=== PATIENT | female | born 1970 | race Caucasian/White ===

== ENCOUNTER 2016-10-08 11:33 | Emergency (ER) | payer MEDICAID ==
[~2016-10-08] VITALS: Ht 154.9 cm; Wt 77.2 kg
[2016-10-08 11:45] VITALS: BP 132/101; PULSE 106; RESP 20; TEMP 97.7; O2SAT 98
[2016-10-08] MEDS ORDERED: ATOR10TA15 PO (11:54)
[2016-10-08] MEDS ORDERED: FLUO20CA4 PO (11:54)
[2016-10-08] MEDS ORDERED: TRAZ100T4 PO (11:54)
[2016-10-08] MEDS ORDERED: SODIUM CHLORIDE 0.9% FLUSH 10 ML FLUSH IVF PRN (12:00)
[2016-10-08] MEDS ORDERED: HYDROmorphone HCL PF 1 MG/ML VIAL IV PUSH ONE (12:00)
[2016-10-08] MEDS ORDERED: ONDANSETRON HCL 4 MG/2 ML VIAL IV PUSH ONE (12:00)
--- NOTE | 2016-10-08 12:01 | PD ---
HPI Chief Complaint: Pain: Acute or Chronic Time Seen by Provider: 11:56 Travel History International Travel<30 days: No Contact w/Intl Traveler<30days: No Traveled to known affect area: No History of Present Illness HPI 46-year-old female with history of pleurisy, presents to the ER today because she is having right posterior chest wall pain with radiation to the right anterior chest wall that started on its own yesterday afternoon. She states it is currently an 8 out of 10 and worsens with deep breaths and moving. She states that it feels better when she holds up her right breast. She denies any coughing, fevers, or any other symptoms. She states that she did have an upper respiratory infection last week which she was getting over. She states it feels exactly like when she had pleurisy last spring. Modifying Factors: Worse with movement deep breaths Associated Signs & Symptoms: Right chest wall pain Risk Factors: History of pleurisy PFSH Past Medical History Anxiety: Yes Depression: Yes High Cholesterol: Yes Medical other: Yes (PLEURISY) ?: Not LMP: [employer] Social History Alcohol Use: No Tobacco Use: Yes Substance Use: No Allergies-Medications (Allergen,Severity, Reaction): Coded Allergies: No Known Allergies (Unverified , 10/08/16) Reported Meds & Prescriptions Reported Meds & Active Scripts Active Reported Fluoxetine (Fluoxetine HCl) 20 Mg Cap 20 Mg PO DAILY Review of Systems Except as stated in HPI: all other systems reviewed are Neg Physical Exam Narrative GENERAL: Middle age white female patient currently is in moderate distress secondary to pain, holding on to her right breast. She is awake, alert, oriented 3. SKIN: Warm and dry. HEAD: Atraumatic. Normocephalic. EYES: Pupils equal and round. No scleral icterus. No injection or drainage. ENT: No nasal bleeding or discharge. Mucous membranes pink and moist. NECK: Trachea midline. No JVD. CARDIOVASCULAR: Regular rate and rhythm. No murmur appreciated. Pulses are present and equal bilaterally. CHEST: Mildly tender to palpation in the right posterior and anterior without deformity or crepitance. No retractions or use of accessory muscles. RESPIRATORY: No accessory muscle use. Clear to auscultation. Breath sounds equal bilaterally. GASTROINTESTINAL: Abdomen soft, non-tender, nondistended. Hepatic and splenic margins not palpable. MUSCULOSKELETAL: No obvious deformities. No clubbing. No cyanosis. No edema. NEUROLOGICAL: Awake and alert. No obvious cranial nerve deficits. Motor grossly within normal limits. Normal speech. PSYCHIATRIC: Appropriate mood and affect; insight and judgment normal. Data Data Last Documented VS Vital Signs Date Time Temp Pulse Resp B/P Pulse Ox O2 Delivery O2 Flow Rate FiO2 10/08/16 12:15 Nasal Cannula 2 10/08/16 12:13 97 10/08/16 12:13 88 20 140/77 130/90 10/08/16 11:45 97.7 Orders Electrocardiogram (10/08/16 11:56) Ckmb (Isoenzyme) Profile (10/08/16 11:56) Complete Blood Count With Diff (10/08/16 11:56) Comprehensive Metabolic Panel (10/08/16 11:56) D-Dimer (10/08/16 11:56) Magnesium (Mg) (10/08/16 11:56) Prothrombin Time / Inr (Pt) (10/08/16 11:56) Act Partial Throm Time (Ptt) (10/08/16 11:56) Troponin I (10/08/16 11:56) Chest, Single Ap (10/08/16 11:56) Ecg Monitoring (10/08/16 11:56) Bilateral Bp Monitoring (10/08/16 11:56) Iv Access Insert/Monitor (10/08/16 11:56) Oximetry (10/08/16 11:56) Oxygen Administration (10/08/16 11:56) Sodium Chloride 0.9% Flush (Ns Flush) (10/08/16 12:00) Hydromorphone Pf Inj (Dilaudid Pf Inj) (10/08/16 12:00) Ondansetron Inj (Zofran Inj) (10/08/16 12:00) Labs Laboratory Tests Test 10/08/16 12:00 White Blood Count 7.8 TH/MM3 Red Blood Count 4.45 MIL/MM3 Hemoglobin 14.2 GM/DL Hematocrit 41.8 % Mean Corpuscular Volume 93.8 FL Mean Corpuscular Hemoglobin 31.9 PG Mean Corpuscular Hemoglobin 34.0 % Concent Red Cell Distribution Width 13.1 % Platelet Count 345 TH/MM3 Mean Platelet Volume 7.7 FL Neutrophils (%) (Auto) 66.9 % Lymphocytes (%) (Auto) 22.5 % Monocytes (%) (Auto) 7.8 % Eosinophils (%) (Auto) 2.2 % Basophils (%) (Auto) 0.6 % Neutrophils # (Auto) 5.2 TH/MM3 Lymphocytes # (Auto) 1.8 TH/MM3 Monocytes # (Auto) 0.6 TH/MM3 Eosinophils # (Auto) 0.2 TH/MM3 Basophils # (Auto) 0.0 TH/MM3 CBC Comment DIFF FINAL Differential Comment Prothrombin Time 10.7 SEC Prothromb Time International 1.0 RATIO Ratio Activated Partial 28.2 SEC Thromboplast Time D-Dimer Quantitative (PE/DVT) 0.20 MG/L FEU Sodium Level 142 MEQ/L Potassium Level 4.0 MEQ/L Chloride Level 108 MEQ/L Carbon Dioxide Level 25.2 MEQ/L Anion Gap 9 MEQ/L Blood Urea Nitrogen 14 MG/DL Creatinine 0.65 MG/DL Estimat Glomerular Filtration 99 ML/MIN Rate Random Glucose 97 MG/DL Calcium Level 9.3 MG/DL Magnesium Level 2.2 MG/DL Total Bilirubin 0.8 MG/DL Aspartate Amino Transf 9 U/L (AST/SGOT) Alanine Aminotransferase 17 U/L (ALT/SGPT) Alkaline Phosphatase 77 U/L Total Creatine Kinase 88 U/L Troponin I LESS THAN 0.02 NG/ML Total Protein 7.1 GM/DL Albumin 3.8 GM/DL MDM Medical Decision Making Medical Screen Exam Complete: Yes Emergency Medical Condition: Yes Medical Record Reviewed: Yes Interpretation(s) EKG shows NSR, no ST elevation or depression, and no arrhythmias. No significant T-wave inversions. Laboratory Tests Test 10/08/16 12:00 Chloride Level 108 MEQ/L (98-107) Aspartate Amino Transf 9 U/L (15-37) (AST/SGOT) Troponin I LESS THAN 0.02 NG/ML (0.02-0.05) Differential Diagnosis Right chest wall painspleurisy versus pneumonia versus musculoskeletal versus acute pulmonary processes. Narrative Course Chest x-ray did not reveal any signs of acute pulmonary processes. Vital signs are stable in the ER. Pulses are present and equal in both upper extremities. EKG did not show any signs of dysrhythmias or ST changes. Lab work is unremarkable for significant metabolic issues. D-dimer is negative. Patient states that her pain is identical to the pain she has had with pleurisy this past year. I have talked her about the workup and at this point suspect pleurisy is the cause of her pain. However, I have talked to the patient regarding the fact that we did not do further Scanning or further workup at this point and there is some small risk that other acute issues are not ruled out. Patient states understanding, and is comfortable with symptomatic relief or pain. She was given Dilaudid in the ER and on reevaluation at 12:45 PM is more comfortable. At this point, my plan would be to release her with follow- up to primary care physician. Return for any worsening in symptoms as necessary. The plan has been discussed with her and she states understanding. Diagnosis Primary Impression: PLEURISY Med/Other Pt SpecificInfo: Prescription(s) given Scripts Hydrocodone-Acetaminophen (Lortab)5-325 Mg Tab1 Tab PO Q6H PRN (PAIN) #15 TAB Ref 0 Prov:Wendy Jackson MD 10/08/16 Ibuprofen (Motrin Ib)200 Mg Mff870 Mg PO Q6H PRN (PAIN SCALE 1 TO 10) #28 TAB Ref 0 Prov:Wendy Jackson MD 10/08/16 Disposition: 01 DISCHARGE HOME Condition: Stable Wendy Jackson MD Oct 08, 2016 12:01
[2016-10-08 12:09] LABS: AUTOMATED NEUTROPHIL # 5.2 TH/MM3 (1.8-7.7); BASOPHIL % 0.6 % (0.0-2.0); EOSINOPHIL # 0.2 TH/MM3 (0-0.4); EOSINOPHIL % 2.2 % (0.0-4.0); HEMATOCRIT 41.8 % (35.0-46.0); HEMO FLAGS DIFF FINAL; LYMPH % 22.5 % (9.0-44.0); LYMPHOCYTE # 1.8 TH/MM3 (1.0-4.8); MEAN CELL VOLUME 93.8 FL (80.0-100.0); MEAN CORPUSCULAR HEMOGLOBIN 31.9 PG (27.0-34.0); MONO % 7.8 % (0.0-8.0); NEUT % 66.9 % (16.0-70.0); PLATELET COUNT 345 TH/MM3 (150-450); RED BLOOD COUNT 4.45 MIL/MM3 (4.00-5.30); RED CELL DISTRIBUTION WIDTH 13.1 % (11.6-17.2); WHITE BLOOD COUNT 7.8 TH/MM3 (4.0-11.0)
[2016-10-08 12:13] VITALS: BP_SYST 130; BP_SYST 140; BP_DIAS 77; BP_DIAS 90; PULSE 88; RESP 20; O2SAT 97; O2SAT 98
[2016-10-08 12:18] LABS: CHLORIDE 108 MEQ/L (98-107); SODIUM (NA) 142 MEQ/L (136-145)
[2016-10-08 12:21] LABS: ANION GAP 9 MEQ/L (5-15); BICARBONATE 25.2 MEQ/L (21.0-32.0); BLOOD UREA NITROGEN 14 MG/DL (7-18); MAGNESIUM 2.2 MG/DL (1.5-2.5)
[2016-10-08 12:25] LABS: ALT (GPT) 17 U/L (10-53); AST (GOT) 9 U/L (15-37); GLOMERULAR FILTRATION RATE 99 ML/MIN (>89)
[2016-10-08 12:26] LABS: TOTAL BILIRUBIN ADULT 0.8 MG/DL (0.2-1.0)
[2016-10-08 12:27] LABS: ALKALINE PHOSPHATASE 77 U/L (45-117)
[2016-10-08 12:32] LABS: APTT (PATIENT) 28.2 SEC (24.3-30.1); PROTHROMBIN TIME - PATIENT 10.7 SEC (9.8-11.6)
[2016-10-08 12:34] LABS: CREATINE KINASE 88 U/L (26-192)
--- NOTE | 2016-10-08 12:46 | RADHPO ---
EXAM DATE/TIME: 10/08/2016 12:19 [facility] COMPARISON: No previous studies available for comparison. INDICATIONS : Chest pain. MEDICAL HISTORY : None. SURGICAL HISTORY : None. ENCOUNTER: Initial ACUITY: 2 days PAIN SCORE: 8/10 LOCATION: Bilateral chest FINDINGS: A single view of the chest demonstrates the lungs to be symmetrically aerated without evidence of mas s, infiltrate or effusion. The cardiomediastinal contours are unremarkable. Osseous structures are intact. CONCLUSION: No acute disease. Briana Cuenca MD on October 08, 2016 at 12:44 Board Certified Radiologist. This report was verified electronically.
[2016-10-08] MEDS ORDERED: MOTR200T4 PO (12:54)
[2016-10-08] MEDS ORDERED: HYDR-3533 PO (12:54)
--- NOTE | 2016-10-09 14:51 | EKG ---
Date Performed: 10/08/2016 Time Performed: 12:04:30 PTAGE: 46 years EKG: Sinus rhythm Normal ECG NO PREVIOUS TRACING DOCTOR: Boris Aceves Interpretating Date/Time 10/09/2016 14:47:44
== END 2016-10-08 13:09 | disposition home or self-care (01) ==
LOC: PHED 11:33
DX: R09.1 Pleurisy (principal); Z79.899 Other long term (current) drug therapy
CPT/HCPCS: 71010; 80053; 82550; 83735; 84484; 85025; 85379; 85610; 85730; 93005; 96374; 96375; 99284; J1170; J2405